=== PATIENT | female | born 1960 ===

== ENCOUNTER → 2023-04-09 | Outpatient (CLI) | payer OTHER ==
[2023-04-09 12:00] LABS: Basophils # (auto) 0.1 10 ^3/uL (0-0.2); Eosinophils # (auto) 0.1 10 ^3/uL (0-0.8); Hemoglobin 13.1 g/dL (12.2-16.2); Lymphocytes # (auto) 1.7 10 ^3/uL (0.4-5.4); Lymphocytes % (auto) 29.8 % (10.0-50.0); Monocytes # (auto) 0.5 10 ^3/uL (0-1.3); White Blood Cell 5.6 10^3/uL (4.4-10.8)
[2023-04-09 12:02] LABS: Basophils % (auto) 1.3 % (0.0-2.0); Hematocrit 41.5 % (36.0-46.0); Mean Corpuscular Hemoglobin 22.4 pg (28.0-32.0); Mean Corpuscular Hgb Conc. 31.5 g/dL (32.0-36.0); Monocytes % (auto) 8.7 % (0.0-12.0); Neutrophils # (auto) 3.2 10 ^3/uL (1.6-8.6); Neutrophils % (auto) 58.2 % (37.0-80.0); Nucleated Red Blood Cells % 0.1 %; Red Blood Cells 5.84 10^6/uL (4.0-5.20); Red Cell Distribution Width 15.1 % (11.8-14.3)
[2023-04-09 12:09] LABS: Albumin 4.1 g/dL (3.4-5.0); Potassium 3.7 mmol/L (3.5-5.1)
[2023-04-09 12:14] LABS: BUN/Creatinine Ratio 11.5 (10.0-20.0); Bilirubin, Total 0.8 mg/dL (0.2-1.0)
== END | disposition home or self-care (01) ==
LOC: LAB 11:24
PROVIDERS: ATTEND Internal Medicine
DX: Z12.11 Encounter for screening for malignant neoplasm of colon (principal); E78.00 Pure hypercholesterolemia, unspecified; R68.89 Other general symptoms and signs
CPT/HCPCS: 36415; 80053; 80061; 85025